=== PATIENT | female | born 1940 | race Caucasian/White ===

== ENCOUNTER 2020-03-30 07:18 | Observation (INO) | payer MEDICARE, BC ==
[2020-03-30] MEDS ORDERED: SODIUM CHLORIDE 0.9% 1,000 ML IV STA (07:39)
[2020-03-30] MEDS ORDERED: PANTOPRAZOLE 40 MG/10 ML VIAL IVP STA (07:39)
--- NOTE | 2020-03-30 07:42 | ED ---
General Adult HPI - General Chief complaint: GI Bleed Stated complaint: GI bleed Time Seen by Provider: 03/30/20 07:27 Source: patient, RN notes reviewed Mode of arrival: ambulatory Limitations: no limitations - History of Present Illness Initial comments: Patient is a pleasant 79-year-old female presenting to the emergency Department with complaints of dark diarrhea. Onset of symptoms was yesterday. Patient has had probably 6 or 7 episodes. No cramping. Patient states when she has diarrhea becomes like it is difficult to get to the bathroom. No nausea vomiting. No abdominal pain. No fever. Patient states diarrhea is watery and dark. No history of similar symptoms previously. No weakness or fatigue. - Related Data Home Medications Medication Instructions Recorded Confirmed Aspirin 81 mg PO HS 03/30/20 03/30/20 Atenolol/Chlorthalidone 1 tab PO HS 03/30/20 03/30/20 [Atenolol-Chlorthalidone 50-25] Benazepril HCl 20 mg PO BID 03/30/20 03/30/20 Cholecalciferol [Vitamin D3 (25 2,000 unit PO HS 03/30/20 03/30/20 Mcg = 1000 Iu)] Cranberry 4200 Mg 4,200 mg PO HS 03/30/20 03/30/20 Fish Oil/Dha/Epa [Fish Oil 1,200 1 cap PO HS 03/30/20 03/30/20 mg Fish Oil] Lovastatin [Mevacor] 40 mg PO HS 03/30/20 03/30/20 Magnesium Oxide [Mason] 500 mg PO HS 03/30/20 03/30/20 Multivit-Min/FA/Lycopen/Lutein 1 tab PO HS 03/30/20 03/30/20 [Centrum Silver Tablet] Potassium Chloride [Klor-Con 10] 10 meq PO BID 03/30/20 03/30/20 Vitamin E (Dl,Tocopheryl Acet) 400 unit PO HS 03/30/20 03/30/20 [Vitamin E] Allergies Allergy/AdvReac Type Severity Reaction Status Date / Time No Known Allergies Allergy Verified 03/30/20 08:57 Review of Systems ROS Statement: Those systems with pertinent positive or pertinent negative responses have been documented in the HPI. ROS Other: All systems not noted in ROS Statement are negative. Constitutional: Denies: fever Eyes: Denies: eye pain ENT: Denies: ear pain Respiratory: Denies: cough, dyspnea Cardiovascular: Denies: chest pain Endocrine: Denies: fatigue Gastrointestinal: Reports: as per HPI, diarrhea. Denies: abdominal pain, nausea, vomiting, constipation, hematemesis Genitourinary: Denies: hematuria Musculoskeletal: Denies: back pain Skin: Denies: rash Neurological: Denies: weakness Past Medical History Past Medical History: No Reported History History of Any Multi-Drug Resistant Organisms: None Reported Additional Past Surgical History / Comment(s): polyp removal Past Psychological History: No Psychological Hx Reported Smoking Status: Never smoker Past Alcohol Use History: None Reported Past Drug Use History: None Reported General Exam Limitations: no limitations General appearance: alert, in no apparent distress Head exam: Present: normocephalic Eye exam: Present: normal appearance Neck exam: Present: normal inspection Respiratory exam: Present: normal lung sounds bilaterally Cardiovascular Exam: Present: regular rate, normal rhythm GI/Abdominal exam: Present: soft, normal bowel sounds. Absent: distended, tenderness, guarding, rebound, rigid, pulsatile mass Rectal exam: Present: other (Nonthrombosed external hemorrhoid. Dark stool.) Extremities exam: Present: normal inspection Neurological exam: Present: alert Psychiatric exam: Present: normal affect, normal mood Skin exam: Present: normal color Course Vital Signs 03/30/20 07:23 Temperature 98.2 F Pulse Rate 70 Respiratory 19 Rate Blood Pressure 180/85 O2 Sat by Pulse 98 Oximetry Medical Decision Making - Medical Decision Making Patient reevaluated. Patient and family updated. Case was discussed in detail with Dr. Koroma, who will admit covering for Dr. Duron. - Lab Data Result diagrams: 03/30/20 07:52 03/30/20 07:52 Lab Results 03/30/20 03/30/20 03/30/20 Range/Units 07:52 07:52 07:52 WBC 6.9 (3.8-10.6) k/uL RBC 5.31 (3.80-5.40) m/uL Hgb 16.5 H (11.4-16.0) gm/dL Hct 51.0 H (34.0-46.0) % MCV 96.1 (80.0-100.0) fL MCH 31.1 (25.0-35.0) pg MCHC 32.4 (31.0-37.0) g/dL RDW 13.1 (11.5-15.5) % Plt Count 296 (150-450) k/uL Neutrophils % 76 % Lymphocytes % 10 % Monocytes % 10 % Eosinophils % 0 % Basophils % 1 % Neutrophils # 5.3 (1.3-7.7) k/uL Lymphocytes # 0.7 L (1.0-4.8) k/uL Monocytes # 0.7 (0-1.0) k/uL Eosinophils # 0.0 (0-0.7) k/uL Basophils # 0.1 (0-0.2) k/uL PT (9.0-12.0) sec INR (<1.2) APTT (22.0-30.0) sec Sodium 136 L (137-145) mmol/L Potassium 4.0 (3.5-5.1) mmol/L Chloride 99 (98-107) mmol/L Carbon Dioxide 27 (22-30) mmol/L Anion Gap 10 mmol/L BUN 18 H (7-17) mg/dL Creatinine 1.14 H (0.52-1.04) mg/dL Est GFR (CKD-EPI)AfAm 54 (>60 ml/min/1.73 sqM) Est GFR (CKD-EPI)NonAf 46 (>60 ml/min/1.73 sqM) Glucose 120 H (74-99) mg/dL Calcium 9.7 (8.4-10.2) mg/dL Total Bilirubin 1.0 (0.2-1.3) mg/dL AST 49 H (14-36) U/L ALT 29 (4-34) U/L Alkaline Phosphatase 49 (38-126) U/L Total Protein 7.6 (6.3-8.2) g/dL Albumin 4.5 (3.5-5.0) g/dL Stool Occult Blood Positive H (Negative) 03/30/20 Range/Units 08:30 WBC (3.8-10.6) k/uL RBC (3.80-5.40) m/uL Hgb (11.4-16.0) gm/dL Hct (34.0-46.0) % MCV (80.0-100.0) fL MCH (25.0-35.0) pg MCHC (31.0-37.0) g/dL RDW (11.5-15.5) % Plt Count (150-450) k/uL Neutrophils % % Lymphocytes % % Monocytes % % Eosinophils % % Basophils % % Neutrophils # (1.3-7.7) k/uL Lymphocytes # (1.0-4.8) k/uL Monocytes # (0-1.0) k/uL Eosinophils # (0-0.7) k/uL Basophils # (0-0.2) k/uL PT 10.3 (9.0-12.0) sec INR 1.0 (<1.2) APTT 23.2 (22.0-30.0) sec Sodium (137-145) mmol/L Potassium (3.5-5.1) mmol/L Chloride (98-107) mmol/L Carbon Dioxide (22-30) mmol/L Anion Gap mmol/L BUN (7-17) mg/dL Creatinine (0.52-1.04) mg/dL Est GFR (CKD-EPI)AfAm (>60 ml/min/1.73 sqM) Est GFR (CKD-EPI)NonAf (>60 ml/min/1.73 sqM) Glucose (74-99) mg/dL Calcium (8.4-10.2) mg/dL Total Bilirubin (0.2-1.3) mg/dL AST (14-36) U/L ALT (4-34) U/L Alkaline Phosphatase (38-126) U/L Total Protein (6.3-8.2) g/dL Albumin (3.5-5.0) g/dL Stool Occult Blood (Negative) Disposition Clinical Impression: GI hemorrhage Disposition: ADMITTED IP TO THIS [facility] Is patient prescribed a controlled substance at d/c from ED?: No Referrals: Fidel Duron DO [Primary Care Provider] - 1-2 days Decision Time: 09:21
[2020-03-30 08:14] LABS: Basophils # (A) 0.1 k/uL (0-0.2); Basophils % (A) 1 %; Eosinophils % (A) 0 %; HGB 16.5 gm/dL (11.4-16.0); Lymphocytes # (A) 0.7 k/uL (1.0-4.8); Lymphocytes % (A) 10 %; MCH 31.1 pg (25.0-35.0); MCHC 32.4 g/dL (31.0-37.0); MCV 96.1 fL (80.0-100.0); Mean Platelet Volume 8.4; Monocytes # (A) 0.7 k/uL (0-1.0); Monocytes % (A) 10 %; Neutrophils # (A) 5.3 k/uL (1.3-7.7); Neutrophils % (A) 76 %; Platelet Count 296 k/uL (150-450); RBC 5.31 m/uL (3.80-5.40); RDW 13.1 % (11.5-15.5); WBC 6.9 k/uL (3.8-10.6)
[2020-03-30 08:31] LABS: Albumin 4.5 g/dL (3.5-5.0); Calcium 9.7 mg/dL (8.4-10.2); Total Protein 7.6 g/dL (6.3-8.2)
[2020-03-30 08:59] LABS: Partial Thromboplastin Time 23.2 sec (22.0-30.0); Prothrombin Time 10.3 sec (9.0-12.0)
[2020-03-30] MEDS ORDERED: NALOXONE 0.4 MG/ML 1 ML VIAL IV PRN (09:22)
[2020-03-30] MEDS: lisinopriL 20 MG TAB PO SCH (10:15)
[2020-03-30] MEDS: POTASSIUM CHLORIDE ER 10 MEQ TAB.ER.PRT PO SCH ×2 (10:16→20:52)
[2020-03-30] MEDS: SODIUM CHLORIDE 0.9% 1,000 ML IV SCH (10:24)
[2020-03-30 16:15] LABS: Basophils % (A) 0 %; Eosinophils % (A) 0 %; HCT 46.2 % (34.0-46.0); HGB 14.9 gm/dL (11.4-16.0); Lymphocytes # (A) 0.9 k/uL (1.0-4.8); Lymphocytes % (A) 15 %; MCH 31.3 pg (25.0-35.0); MCHC 32.2 g/dL (31.0-37.0); MCV 97.4 fL (80.0-100.0); Mean Platelet Volume 8.1; Monocytes # (A) 0.6 k/uL (0-1.0); Monocytes % (A) 9 %; Neutrophils # (A) 4.7 k/uL (1.3-7.7); Neutrophils % (A) 74 %; Platelet Count 261 k/uL (150-450); RBC 4.74 m/uL (3.80-5.40); RDW 13.1 % (11.5-15.5); WBC 6.3 k/uL (3.8-10.6)
--- NOTE | 2020-03-30 19:21 | P.HPIM ---
History of Present Illness H&P Date: 03/30/20 Chief Complaint: Dark stools History of presenting complaint: This is a very pleasant 79-year-old patient of Dr. Dr. Duron. Chronic stable medical conditions include hypertension, hyperlipidemia, osteophyte redness, autonomic regurgitation, hemorrhoids. Patient is alone rather independent. Patient said he started with diarrhea yesterday had multiple stools and stools became rather dark in color. No bowel pain. No nausea vomiting. No fever no chills. Patient was 6 months ago was taking Advil at night. Then she discontinued as per family doctor. Does take a baby aspirin. No prior history of EGD colonoscopy. Feeling a bit tired and rundown. GI was consulted. Patient daughter the bedside. Review of systems: GEN.: Tired EYES: None HEENT: None NECK: None RESPIRATORY: None CARDIOVASCULAR: None GASTROINTESTINAL: As above GENITOURINARY: None MUSCULOSKELETAL: Joint pains LYMPHATICS: None HEMATOLOGICAL: None PSYCHIATRY: None NEUROLOGICAL: None Past medical history to include: Hypertension, hyperlipidemia, osteoarthritis, autonomic regurgitation, hemo rrhoids Social history: Lives alone. No history of smoking alcohol. Physical examination: VITAL SIGNS: 98.2, 70, 19, 1 77 x 79, 98% room air GENERAL: BMI 23.2, sitting up in bed, awake. EYES: Pupils equal. Conjunctiva normal. HEENT: External appearance of nose and ears normal, oral cavity grossly normal. NECK: JVD not raised; masses not palpable. HEART: First and second heart sounds are normal; no edema. LUNGS: Respiratory rate normal; clear to auscultation. ABDOMEN: Soft, nontender, liver spleen not palpable, no masses palpable. PSYCH: Alert and oriented x3; mood and affect normal. MUSCULAR schedule: Evidence of OA especially in the hands NEUROLOGICAL: Cranial nerves grossly intact; no facial asymmetry, power and sensation grossly intact. LYMPHATICS: No lymph nodes palpable in the axilla and neck INVESTIGATIONS, reviewed in the clinical context: White count 6.9 hemoglobin 16.5 repeat 40.9 platelets 296 potassium 4 bun 18 creatinine 1.14 Assessment: -This is a patient yesterday started with diarrhea than the stools became dark in color. Patient had been taking as Advil up to 6 months ago not takes a baby aspirin. Has no abdominal pain. The probably need endoscopy at some point. Likely upper GI source of bleeding. Gastritis versus peptic ulcer disease -Essential hypertension -Hyperlipidemia -Primary osteoarthritis -100 regurgitation -Chronic hemorrhoids Plan: Home medications and resume. Told the patient aspirin. Started on PPI. Follow H&H. Care was discussed with the patient out of the bedside. GI was consulted. With a view to possible endoscopy. Patient put on liquid diet. Past Medical History Past Medical History: No Reported History History of Any Multi-Drug Resistant Organisms: None Reported Additional Past Surgical History / Comment(s): polyp removal Past Psychological History: No Psychological Hx Reported Smoking Status: Never smoker Past Alcohol Use History: None Reported Past Drug Use History: None Reported - Past Family History Father Additional Family Medical History / Comment(s): Father had "heart problems" later in his life. He lived to be 93 yrs old. Mother Family Medical History: No Reported History Additional Family Medical History / Comment(s): Mother lived to be 93 yrs old. Medications and Allergies Home Medications Medication Instructions Recorded Confirmed Type Aspirin 81 mg PO 03/30/20 03/30/20 History Atenolol/Chlorthalidone 1 tab PO 03/30/20 03/30/20 History [Atenolol-Chlorthalidone 50-25] Benazepril HCl 20 mg PO BID 03/30/20 03/30/20 History Cholecalciferol [Vitamin D3 (25 2,000 unit PO 03/30/20 03/30/20 History Mcg = 1000 Iu)] Cranberry 4200 Mg 4,200 mg PO HS 03/30/20 03/30/20 History Fish Oil/Dha/Epa [Fish Oil 1,200 1 cap PO 03/30/20 03/30/20 History mg Fish Oil] Lovastatin [Mevacor] 40 mg PO HS 03/30/20 03/30/20 History Magnesium Oxide [Mason] 500 mg PO HS 03/30/20 03/30/20 History Multivit-Min/FA/Lycopen/Lutein 1 tab PO HS 03/30/20 03/30/20 History [Centrum Silver Tablet] Potassium Chloride [Klor-Con 10] 10 meq PO BID 03/30/20 03/30/20 History Vitamin E (Dl,Tocopheryl Acet) 400 unit PO HS 03/30/20 03/30/20 History [Vitamin E] Allergies Allergy/AdvReac Type Severity Reaction Status Date / Time No Known Allergies Allergy Verified 03/30/20 08:57 Physical Exam Vitals: Vital Signs Temp Pulse Resp BP Pulse Ox 03/30/20 07:23 98.2 F 70 19 180/85 98 Intake and Output 03/29/20 03/30/20 03/30/20 22:59 06:59 14:59 Other: Weight 55.656 kg Results CBC & Chem 7: 03/30/20 15:53 03/30/20 07:52 Labs: Abnormal Lab Results - Last 24 Hours (Table) 03/30/20 03/30/20 03/30/20 Range/Units 07:52 07:52 07:52 Hgb 16.5 H (11.4-16.0) gm/dL Hct 51.0 H (34.0-46.0) % Lymphocytes # 0.7 L (1.0-4.8) k/uL Sodium 136 L (137-145) mmol/L BUN 18 H (7-17) mg/dL Creatinine 1.14 H (0.52-1.04) mg/dL Glucose 120 H (74-99) mg/dL AST 49 H (14-36) U/L Stool Occult Blood Positive H (Negative)
[2020-03-30] MEDS: PANTOPRAZOLE 40 MG TABLET PO SCH (20:52)
[2020-03-30] MEDS ORDERED: CHLORTHALIDONE 25 MG TAB PO SCH (21:00)
[2020-03-30] MEDS ORDERED: VITAMIN E (DL,TOCOPHERYL ACET) 400 UNIT CAP PO SCH (21:00)
[2020-03-30] MEDS ORDERED: atenoloL 50 MG TAB PO SCH (21:00)
[2020-03-30] MEDS ORDERED: ASPIRIN 81 MG PO SCH (21:00)
[2020-03-30] MEDS ORDERED: ATORVASTATIN 10 MG TAB PO SCH (21:00)
[2020-03-30] MEDS ORDERED: MAGNESIUM OXIDE 400 MG TAB PO SCH (21:00)
[2020-03-31 06:05] LABS: Basophils % (A) 0 %; Eosinophils % (A) 0 %; HCT 46.8 % (34.0-46.0); HGB 14.9 gm/dL (11.4-16.0); Lymphocytes # (A) 1.1 k/uL (1.0-4.8); Lymphocytes % (A) 17 %; MCH 31.1 pg (25.0-35.0); MCHC 31.8 g/dL (31.0-37.0); MCV 97.8 fL (80.0-100.0); Mean Platelet Volume 7.7; Monocytes # (A) 0.7 k/uL (0-1.0); Monocytes % (A) 11 %; Neutrophils # (A) 4.2 k/uL (1.3-7.7); Neutrophils % (A) 68 %; Platelet Count 272 k/uL (150-450); RBC 4.79 m/uL (3.80-5.40); RDW 13.1 % (11.5-15.5); WBC 6.2 k/uL (3.8-10.6)
[2020-03-31 06:20] LABS: Calcium 8.6 mg/dL (8.4-10.2); Potassium 3.7 mmol/L (3.5-5.1)
[2020-03-31] MEDS: PANTOPRAZOLE 40 MG TABLET PO SCH ×2 (08:04→16:43)
[2020-03-31] MEDS: POTASSIUM CHLORIDE ER 10 MEQ TAB.ER.PRT PO SCH (08:04)
[2020-03-31] MEDS: lisinopriL 20 MG TAB PO SCH (08:04)
[2020-03-31 08:11] VITALS: RESP 18
[2020-03-31] MEDS ORDERED: PANTOPRAZOLE 40 MG/10 ML VIAL IV SCH (09:00)
[2020-03-31] MEDS: SODIUM CHLORIDE 0.9% 1,000 ML IV SCH (10:05)
[2020-03-31] MEDS ORDERED: CIPROFLOXACIN HCL 500 MG TAB PO SCH (11:45)
[2020-03-31] MEDS ORDERED: LOPERAMIDE 2 MG CAP PO PRN (11:49)
--- NOTE | 2020-03-31 11:57 | P.CONS ---
History of Present Illness - Reason for Consult Consult date: 03/30/20 Diarrhea, GI bleed Requesting physician: Maxim Koroma - Chief Complaint Diarrhea - History of Present Illness 71-year-old female with a medical history significant for hypertension, hyperlipidemia, osteoarthritis and hemorrhoids presented to the hospital due to complaints of diarrhea. The patient reports 7-8 episodes of loose bowel movements prior to presentation. She reports the movements eventually were dark and black in color. On questioning however the patient does report that she took Pepto-Bismol for treatment of her symptoms. No prior history of endoscopy with either EGD or colonoscopy. Stool testing for blood was occult positive. INR 1.0, WBC 6.9, hemoglobin 16.5, platelet count 286,000 with total bilirubin 1.0, alkaline phosphatase 49, AST 49 ALT 29. Review of Systems REVIEW OF SYSTEMS: CONSTITUTIONAL: Denies any fevers, chills, weight change or fatigue. CARDIOVASCULAR: Denies any chest pain, palpitations high or low blood pressures RESPIRATORY: Denies any shortness of breath, hemoptysis or cough. GENITOURINARY: No dysuria or hematuria. MUSCULOSKELETAL: No weakness reported. SKIN: Denies any new rashes or lesions, jaundice or pallor. PSYCHIATRIC: Denies any depression or anxiety. NEUROLOGY: Denies headache, denies any new focal deficits. EARS/NOSE/THROAT: No recent hearing change, congestion, nasal discharge or sore throat. EYES: No pain in eyes, discharge or change in vision. GASTROINTESTINAL: As per HPI. Past Medical History Past Medical History: Hyperlipidemia, Hypertension, Osteoarthritis (OA) Additional Past Medical History / Comment(s): Aortic regurgitation/murmur, hemorrhoids, arthritis R index finger. History of Any Multi-Drug Resistant Organisms: None Reported Past Surgical History: Tonsillectomy Additional Past Surgical History / Comment(s): ABRAHAM, D&C/hysteroscopy, bilateral cataract removals/lens implants Past Anesthesia/Blood Transfusion Reactions: No Reported Reaction Past Psychological History: No Psychological Hx Reported Additional Psychological History / Comment(s): Pt resides alone. She is independent. Smoking Status: Never smoker Past Alcohol Use History: None Reported Past Drug Use History: None Reported - Past Family History Father Additional Family Medical History / Comment(s): Father had "heart problems" later in his life. He lived to be 93 yrs old. Mother Family Medical History: No Reported History Additional Family Medical History / Comment(s): Mother lived to be 93 yrs old. Medications and Allergies Home Medications Medication Instructions Recorded Confirmed Type Aspirin 81 mg PO HS 03/30/20 03/30/20 History Atenolol/Chlorthalidone 1 tab PO HS 03/30/20 03/30/20 History [Atenolol-Chlorthalidone 50-25] Benazepril HCl 20 mg PO BID 03/30/20 03/30/20 History Cholecalciferol [Vitamin D3 (25 2,000 unit PO HS 03/30/20 03/30/20 History Mcg = 1000 Iu)] Cranberry 4200 Mg 4,200 mg PO HS 03/30/20 03/30/20 History Fish Oil/Dha/Epa [Fish Oil 1,200 1 cap PO HS 03/30/20 03/30/20 History mg Fish Oil] Lovastatin [Mevacor] 40 mg PO HS 03/30/20 03/30/20 History Magnesium Oxide [Mason] 500 mg PO HS 03/30/20 03/30/20 History Multivit-Min/FA/Lycopen/Lutein 1 tab PO HS 03/30/20 03/30/20 History [Centrum Silver Tablet] Potassium Chloride [Klor-Con 10] 10 meq PO BID 03/30/20 03/30/20 History Vitamin E (Dl,Tocopheryl Acet) 400 unit PO HS 03/30/20 03/30/20 History [Vitamin E] Ciprofloxacin HCl [Cipro] 500 mg PO BID #5 tab 03/31/20 Rx Omeprazole [PriLOSEC] 10 mg PO BID #60 capsule. 03/31/20 Rx metroNIDAZOLE [Flagyl] 500 mg PO TID #7 tab 03/31/20 Rx Allergies Allergy/AdvReac Type Severity Reaction Status Date / Time No Known Allergies Allergy Verified 03/30/20 08:57 Physical Exam Vitals: Vital Signs Temp Pulse Pulse Resp BP BP Pulse Ox 03/30/20 11:05 98.2 F 72 16 166/73 97 03/30/20 10:18 97.4 F L 72 18 177/79 98 03/30/20 07:23 98.2 F 70 19 180/85 98 Intake and Output 03/30/20 03/30/20 03/30/20 06:59 14:59 22:59 Other: Weight 55.656 kg On physical examination, patient appears comfortable in no apparent distress. HEAD: Normocephalic, atraumatic. EYES: No scleral icterus. No conjunctival injection. MOUTH: No lesions, tongue midline. NECK: Trachea midline, no gross abnormalities. CHEST: Clear to auscultation with no wheezing or rhonchi appreciated. HEART: Regular rate and rhythm. ABDOMEN: Soft, nontender to palpation. Bowel sounds are positive. No organomegaly. No guarding or rigidity. EXTREMITIES: No pedal edema. SKIN: No rashes, no jaundice. NEUROLOGIC: Alert and oriented x3. No focal deficits. Results CBC & Chem 7: 03/31/20 05:53 03/31/20 05:53 Labs: Abnormal Lab Results - Last 24 Hours (Table) 03/30/20 03/30/20 03/30/20 Range/Units 07:52 07:52 07:52 Hgb 16.5 H (11.4-16.0) gm/dL Hct 51.0 H (34.0-46.0) % Lymphocytes # 0.7 L (1.0-4.8) k/uL Sodium 136 L (137-145) mmol/L BUN 18 H (7-17) mg/dL Creatinine 1.14 H (0.52-1.04) mg/dL Glucose 120 H (74-99) mg/dL AST 49 H (14-36) U/L Stool Occult Blood Positive H (Negative) 03/30/20 Range/Units 15:53 Hgb (11.4-16.0) gm/dL Hct 46.2 H (34.0-46.0) % Lymphocytes # 0.9 L (1.0-4.8) k/uL Sodium (137-145) mmol/L BUN (7-17) mg/dL Creatinine (0.52-1.04) mg/dL Glucose (74-99) mg/dL AST (14-36) U/L Stool Occult Blood (Negative) Assessment and Plan (1) Diarrhea Narrative/Plan: 71-year-old female presented to the hospital due to complaints of multiple loose bowel movements. She did report dark bowel movements however on questioning states that the Pepto-Bismol prior to that bowel movements becoming dark. Hemoglobin was normal on presentation at 16.5. No prior endoscopic history. Suspicion is for acute gastrointestinal infection viral or bacterial, GI bleed less likely given him a dynamic and laboratory stability. Current Visit: Yes Status: Acute Code(s): R19.7 - DIARRHEA, UNSPECIFIED SNOMED Code(s): 14984942 Plan: Supportive care Okay for clear liquid diet Continue monitor CBC and transfuse as needed Avoid NSAID use Extensive discussion with the patient and her daughter who is bedside, would recommend endoscopic evaluation with colonoscopy in the outpatient setting as jhon chris has not had a screening colonoscopy in the past, however patient has a fall in her hemoglobin or any other symptoms or signs of bleeding will reevaluate for endoscopy prior to discharge Thank you for allowing us to participate in the care of the patient
[2020-03-31] MEDS: metroNIDAZOLE 500 MG TAB PO SCH ×2 (12:27→16:43)
[2020-03-31 16:43] VITALS: BP 164/71; PULSE 96; TEMP 98.1
--- NOTE | 2020-03-31 21:35 | P.DS ---
Providers Date of admission: 03/30/20 09:28 Expected date of discharge: 03/31/20 Attending physician: Maxim Koroma Primary care physician: Fidel Duron [facility] Course: Chief Complaint: Dark stools History of presenting complaint: This is a very pleasant 79-year-old patient of Dr. Dr. Duron. Chronic stable medical conditions include hypertension, hyperlipidemia, osteophyte redness, autonomic regurgitation, hemorrhoids. Patient is alone rather independent. Patient said he started with diarrhea yesterday had multiple stools and stools became rather dark in color. No bowel pain. No nausea vomiting. No fever no chills. Patient was 6 months ago was taking Advil at night. Then she discontinued as per family doctor. Does take a baby aspirin. No prior history of EGD colonoscopy. Feeling a bit tired and rundown. GI was consulted. Patient daughter the bedside. Today-patient is treated cleared up. Feeling well. Patient empirically started on ciprofloxacin and Flagyl. Diet was advanced. She did well. Outpatient EGD colonoscopy. We will be done. Discussed with Dr. Moreno from GI. Discussion and discharge planning more than 35 minutes Consultation: Dr. Moreno from GI Physical examination: VITAL SIGNS: 97.9, 67, 18, 163/69, 96% room air GENERAL: Sitting up, comfortable. EYES: Pupils equal. Conjunctiva normal. HEENT: External appearance of nose and ears normal, oral cavity grossly normal. NECK: JVD not raised; masses not palpable. HEART: First and second heart sounds are normal; no edema. LUNGS: Respiratory rate normal; clear to auscultation. ABDOMEN: Soft, nontender, liver spleen not palpable, no masses palpable. PSYCH: Alert and oriented x3; mood and affect normal. MUSCULAR schedule: Evidence of OA especially in the hands INVESTIGATIONS, reviewed in the clinical context: Hemoglobin 14.9 White count 6.9 hemoglobin 16.5 repeat 40.9 platelets 296 potassium 4 bun 18 creatinine 1.14 Assessment: -Acute GI bleed-self resolving. For further workup outpatient. -Possible infectious diarrhea, acute -Essential hypertension -Hyperlipidemia -Primary osteoarthritis -Aottic regurgitation -Chronic hemorrhoids Disposition: Home Patient Condition at Discharge: Stable Plan - Discharge Summary Discharge Rx Participant: No New Discharge Prescriptions: New Ciprofloxacin HCl [Cipro] 500 mg PO BID #5 tab metroNIDAZOLE [Flagyl] 500 mg PO TID #7 tab Omeprazole [PriLOSEC] 10 mg PO BID #60 capsule. Continue Cranberry 4200 Mg 4,200 mg PO HS Aspirin 81 mg PO HS Atenolol/Chlorthalidone [Atenolol-Chlorthalidone 50-25] 1 tab PO HS Benazepril HCl 20 mg PO BID Cholecalciferol [Vitamin D3 (25 Mcg = 1000 Iu)] 2,000 unit PO HS Fish Oil/Dha/Epa [Fish Oil 1,200 mg Fish Oil] 1 cap PO HS Lovastatin [Mevacor] 40 mg PO HS Magnesium Oxide [Mason] 500 mg PO HS Multivit-Min/FA/Lycopen/Lutein [Centrum Silver Tablet] 1 tab PO HS Potassium Chloride [Klor-Con 10] 10 meq PO BID Vitamin E (Dl,Tocopheryl Acet) [Vitamin E] 400 unit PO HS Discharge Medication List Aspirin 81 mg PO HS 03/30/20 [History] Atenolol/Chlorthalidone [Atenolol-Chlorthalidone 50-25] 1 tab PO HS 03/30/20 [History] Benazepril HCl 20 mg PO BID 03/30/20 [History] Cholecalciferol [Vitamin D3 (25 Mcg = 1000 Iu)] 2,000 unit PO HS 03/30/20 [History] Cranberry 4200 Mg 4,200 mg PO HS 03/30/20 [History] Fish Oil/Dha/Epa [Fish Oil 1,200 mg Fish Oil] 1 cap PO HS 03/30/20 [History] Lovastatin [Mevacor] 40 mg PO HS 03/30/20 [History] Magnesium Oxide [Mason] 500 mg PO HS 03/30/20 [History] Multivit-Min/FA/Lycopen/Lutein [Centrum Silver Tablet] 1 tab PO HS 03/30/20 [History] Potassium Chloride [Klor-Con 10] 10 meq PO BID 03/30/20 [History] Vitamin E (Dl,Tocopheryl Acet) [Vitamin E] 400 unit PO HS 03/30/20 [History] Ciprofloxacin HCl [Cipro] 500 mg PO BID #5 tab 03/31/20 [Rx] Omeprazole [PriLOSEC] 10 mg PO BID #60 capsule. 03/31/20 [Rx] metroNIDAZOLE [Flagyl] 500 mg PO TID #7 tab 03/31/20 [Rx] Follow up Appointment(s)/Referral(s): Fidel Duron DO [Primary Care Provider] - 1-2 days Dragan Abdi MD [STAFF PHYSICIAN] - 1 Week Patient Instructions/Handouts: Gastrointestinal Bleeding (GEN), Acute Diarrhea (GEN) Activity/Diet/Wound Care/Special Instructions: cbc - 5 days dc later if ok dr abdi Discharge Disposition: HOME SELF-CARE
== END 2020-03-31 19:10 | disposition home or self-care (01) ==
LOC: EC 07:18 → 1SOBS 09:28
PROVIDERS: ADMIT Hospitalist; ATTEND Hospitalist
DX: K92.2 Gastrointestinal hemorrhage, unspecified (principal); R19.7 Diarrhea, unspecified; Z79.82 Long term (current) use of aspirin; Z79.899 Other long term (current) drug therapy; I10 Essential (primary) hypertension; E78.5 Hyperlipidemia, unspecified; M25.70 Osteophyte, unspecified joint; I35.1 Nonrheumatic aortic (valve) insufficiency; K64.9 Unspecified hemorrhoids; M19.90 Unspecified osteoarthritis, unspecified site; Z98.42 Cataract extraction status, left eye; Z98.41 Cataract extraction status, right eye; Z96.1 Presence of intraocular lens; Z98.890 Other specified postprocedural states; Z82.49 Family history of ischemic heart disease and other diseases of the circulatory system
CPT/HCPCS: 96361; 96374; 99285; 36415; 80053; 80048; 85025 ×2; 85610; 85730; 82272; 87324; 87045; 83630; 87046; G0378 ×2; U0003; C9113

== ENCOUNTER → 2024-01-27 | Outpatient (CLI) | payer MEDICARE, BC ==
--- NOTE | 2024-01-27 17:26 | CA ---
Transthoracic Echo Report Name: Ricky Ross Age: 83 Gender: F : 1940 Exam Date: 01/27/2024 16:32 Exam Location: [facility] Ht (in): 61 Wt (lb): 120 Ordering Physician: Fidel Duron DO Attending/Referring Phys: Tempering Machine Operator Sydnie Bowling RDCS Procedure CPT: Indications: I35.1 NONRHEUMATIC AORTIC (VALVE) INSUFFICIENCY Cardiac Hx: Technical Quality: Fair Contrast 1: Total Dose (mL): Contrast 2: Total Dose (mL): MEASUREMENTS (Male / Female) Normal Values 2D ECHO LV Diastolic Diameter PLAX 4.3 cm 4.2 - 5.9 / 3.9 - 5.3 cm LV Systolic Diameter PLAX 3.0 cm IVS Diastolic Thickness 1.3 cm 0.6 - 1.0 / 0.6 - 0.9 cm LVPW Diastolic Thickness 1.2 cm 0.6 - 1.0 / 0.6 - 0.9 cm LV Relative Wall Thickness 0.6 RV Internal Dim ED PLAX 2.2 cm LVOT Diameter 1.7 cm LA Systolic Diameter LX 3.9 cm 3.0 - 4.0 / 2.7 - 3.8 cm LV Diastolic Volume MOD BP 54.1 cm??? 67 - 155 / 56 - 104 cm??? LV Systolic Volume MOD BP 19.1 cm??? 22 - 58 / 19 - 49 cm??? LV Ejection Fraction MOD BP 64.7 % >= 55 % LV Diastolic Volume MOD 4C 65.5 cm??? LV Systolic Volume MOD 4C 21.5 cm??? LV Ejection Fraction MOD 4C 67.2 % LV Diastolic Length 4C 6.6 cm LV Systolic Length 4C 5.5 cm LV Diastolic Volume MOD 2C 42.5 cm??? LV Systolic Volume MOD 2C 14.3 cm??? LV Ejection Fraction MOD 2C 66.5 % LV Diastolic Length 2C 6.3 cm LV Systolic Length 2C 4.5 cm LA Volume 56.8 cm??? 18 - 58 / 22 - 52 cm??? LA Volume Index 36.9 cm???/m??? 16 - 28 cm???/m??? M-MODE Aortic Root Diameter MM 4.2 cm LA Systolic Diameter MM 4.2 cm LA Ao Ratio MM 1.0 AV Cusp Separation MM 1.2 cm DOPPLER AV Peak Velocity 205.1 cm/s AV Peak Gradient 16.8 mmHg AV Mean Velocity 131.1 cm/s AV Mean Gradient 8.3 mmHg AV Velocity Time Integral 39.0 cm AI Peak Velocity 353.7 cm/s AI Peak Gradient 50.0 mmHg AI Pressure Half Time 507.5 ms MV Area PHT 3.0 cm??? Mitral E Point Velocity 67.5 cm/s Mitral A Point Velocity 97.2 cm/s Mitral E to A Ratio 0.7 MV Deceleration Time 251.3 ms TR Peak Velocity 250.6 cm/s TR Peak Gradient 25.1 mmHg FINDINGS Left Ventricle Left ventricular ejection fraction is estimated at 55-60%. Mildly increased septal wall thickness. Mildly increased posterior wall thickness. Left ventricular cavity size normal. No obvious regional wall motion abnormalities. Right Ventricle Normal right ventricular size and function. Right ventricular systolic pressure within normal limits. Right Atrium Mild right atrial dilatation. Left Atrium Mildly increased left atrial diameter. Mildly increased left atrial volume. Mitral Valve Moderate thickening/calcification of the anterior mitral valve leaflet. Moderate thickening/calcification of the posterior mitral valve leaflet. Mild mitral regurgitation. Aortic Valve Trileaflet aortic valve. Mild aortic stenosis with a peak gradient of 17 mmHg and a mean gradient of 8mmHg. Moderate aortic regurgitation. Eccentric aortic regurgitation jet directed at the mitral valve. Tricuspid Valve Structurally normal tricuspid valve. Mild tricuspid regurgitation. Pulmonic Valve Structurally normal pulmonic valve. Trace pulmonic regurgitation. No pulmonic stenosis. Pericardium No pericardial or pleural effusion. Aorta Moderately dilated aortic root 4.2cm CONCLUSIONS Normal LV function Moderately thickened and calcified anterior mitral leaflet with mild mitral regurgitation Mild aortic stenosis Moderate aortic regurgitation Previewed by: Dr. Aurelio Avery MD (Electronically Signed) Final Date: 27 January 2024 17:25
== END | disposition home or self-care (01) ==
LOC: RADECHMAIN 16:19
PROVIDERS: ATTEND Family Medicine
DX: I08.0 Rheumatic disorders of both mitral and aortic valves (principal)
CPT/HCPCS: 93306